=== PATIENT | female | born 1970 | race Two or more races ===

== ENCOUNTER 2021-06-19 12:12 | Outpatient (CLI) | payer BC | END 2021-06-19 12:28 | disposition home or self-care (01) | LOC: MAMO-SONO 12:12 | PROVIDERS: ATTEND Obstetrics & Gynecology Maternal & Fetal Medicine | DX: N60.02 Solitary cyst of left breast (principal); Z12.31 Encounter for screening mammogram for malignant neoplasm of breast; N64.4 Mastodynia; N60.11 Diffuse cystic mastopathy of right breast ==